=== PATIENT | female | born 1955 | race Caucasian/White ===

== ENCOUNTER → 2017-01-22 | Outpatient (CLI) | payer BC ==
--- NOTE | 2017-01-22 15:12 | MY ---
EXAMINATION: Bilateral digital mammography utilizing CAD. Left breast ultrasound. HISTORY: Diagnostic exam. Comparison is made to previous studies dated 08/13/2015, 01/10/2015 . FINDINGS Bilateral scattered fibroglandular densities. There are developing irregular and coarse calcifications within the region of scoliosis/fat necrosis within the lower outer left breast. The calcifications appear continually evolving from subsequent mammograms and is likely secondary to previous breast reduction. Targeted ultrasound evaluation of this region demonstrates a hypoechoic, fairly well circumscribed m ass measuring 2.8 x 1.2 cm. This previously measured 3.9 x 1.4 cm. There is also a complex cystic st ructure measuring 1 x 1.2 cm also at the 4 o'clock to 5 o'clock position of the left breast. Previou sly this measured the same, however, has become more complex. No internal color Doppler flow is note d. This likely represents an oil cyst. No suspicious calcifications, masses or architectural distortions. No pathologic appearing lymph n odes, no abnormal skin thickening or nipple inversion. CAD highlighted regions appear normal at th is time. IMPRESSION: BI-RADS category II - Benign finding. Continued screening according to ACR-ACS guidelin es suggested. THE FALSE-NEGATIVE RATE OF MAMMOGRAM IS APPROXIMATELY 10%. MANAGEMENT OF A PALPABLE ABNORMALITY MUST BE BASED UPON CLINICAL GROUNDS. SENSITIVITY FOR DETECTION OF ABNORMALITIES IN DENSE BREASTS IS LOW. NOTE: A letter will be sent to the patient regarding findings. [facility] -- DEEPIKA Lama [phone] - FAX [phone]
--- NOTE | 2017-01-22 16:22 | XA ---
Exam Date: 01/22/17 Patient's Age: 61 HEIGHT: 62.0 in WEIGHT: 190.0 lbs INDICATIONS: Currently Menopausal, Family Hx of Osteoporosis, Hypothyroid FRACTURES: TREATMENTS: Losartan, Metformin, Synthroid ASSESSMENT: The BMD measured at Femur Neck Mean is 0.960 g/cm2 with a T-score of -0.6. Bone density is up to 10% below young normal. This patient is considered normal according to World Health Organization (WHO) criteria. Fracture risk is low. The BMD measured at Femur Troch Mean is 0.953 g/cm2 with a T-score of 0.9 is normal. Fracture risk is low. RESULTS: Site Region Age Classification T-Score BMD AP Spine L1-L4 62.1 Normal 3.5 1.634 g/cm2 Dual Femur Neck Mean 62.1 Normal -0.6 0.960 g/cm2 Dual Femur Troch Mean 62.1 N/A 0.9 0.953 g/cm2 Dual Femur Total Mean 62.1 Normal 0.8 1.113 g/cm2 World Health Organization - Criteria for post-menopausal, women: Normal: T-Score at or above -1 SD Osteopenia: T-Score between -1 and -2.5 SD Osteoporosis: T-Score at or below -2.5 SD RECOMMENDATION: Pharmacologic treatment recommendations & Initiate pharmacologic treatment: - In those with hip or vertebral (clinical or asymptomatic) fractures - In those with T -scores <-2.5 at the femoral neck, total hip, or lumbar spine by DXA - In postmenopausal women and men age 50 and older with low bone mass (T-score between -1.0 and -2.5, osteopenia) at the femoral neck, total hip, or lumbar spine by DXA and a 10-year hip fracture probability >3 % or a 10-year major osteoporosis-related fracture probability >20% based on the [place]-adapted WHO absolute fracture risk model (Fracture Risk Algorithm (FRAX); www. NOF.org and www.shef.ac.uk/FRAX) FOLLOW UP: People with diagnosed cases of osteoporosis or at high risk for fracture should have regular bone mineral density tests. For patients eligible for Medicare, routine testing is allowed once every 2 years. The testing frequency can be increased to 1 year for patients who have rapidly progressing disease, those who are reviewing or discontinuing medial therapy to restore bone mass, or have additional risk factors. People with diagnosed cases of osteoporosis or osteopenia should be regularly tested for bone mineral density. For patient eligible for Medicare, routine testing is allowed once every 2 years. The testing frequency can be increased to 1 year for patients who have rapidly progressing disease, or for those who are receiving medial therapy to restore bone mass. [facility] -- DEEPIKA Lama [phone] - FAX: [phone] [place]
== END ==
LOC: MW.MAM 10:32
PROVIDERS: ATTEND Obstetrics & Gynecology
DX: N63 Unspecified lump in breast (principal); N95.1 Menopausal and female climacteric states
CPT/HCPCS: 76641; 77080; G0204

== ENCOUNTER 2017-11-10 06:25 | Day surgery (SDC) | payer BC ==
[~2017-11-10 06:25] MED LIST: Lactated Ringers 1,000 ML IV SCH; Sodium Chloride 0.9% 10 ML Syringe FLUSH PRN; Sodium Chloride 0.9% 2.5 ML Syringe FLUSH PRN
--- NOTE | 2017-11-10 07:09 | PCM.PREANE ---
Preanesthetic Assessment - Anesthesia/Transfusion/Family Hx Anesthesia History: Prior Anesthesia Without Reaction Other Type of Anesthesia Reaction Comment: Denies any problems in the past Family History of Anesthesia Reaction: No Transfusion History: No Prior Transfusion(s) Intubation History: Unknown - Review of Systems General: No Symptoms Pulmonary: No Symptoms Cardiovascular: No Symptoms Gastrointestinal: Other (h/o colon polyps, family h/o colon cancer) Neurological: No Symptoms Other: Reports: None - Physical Assessment NPO Status Date: 11/08/17 NPO Status Time: 21:00 O2 Sat by Pulse Oximetry: 97 Respiratory Rate: 14 Vital Signs: Last Vital Signs Temp 36.4 C 11/10/17 06:30 Pulse 66 11/10/17 06:30 Resp 14 11/10/17 06:30 BP 162/70 H 11/10/17 06:30 Pulse Ox 97 11/10/17 06:30 Height: 1.57 m Weight: 81.647 kg ASA Class: 3 Mental Status: Alert & Oriented x3 Airway Class: Mallampati = 2 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) Thyro-Mental Finger Breadths: 2 Mouth Opening Finger Breadths: 2 ROM/Head Extension: Full Lungs: Clear to Auscultation, Normal Respiratory Effort Cardiovascular: Regular Rate, Regular Rhythm - Allergies Allergies/Adverse Reactions: Allergies Allergy/AdvReac Type Severity Reaction Status Date / Time lisinopril Allergy Hives Verified 11/04/17 13:37 - Blood Blood Available: No - Anesthesia Plan Pre-Op Medication Ordered: None - Acknowledgements Anesthesia Type Planned: MAC Pt an Appropriate Candidate for the Planned Anesthesia: Yes Alternatives and Risks of Anesthesia Discussed w Pt/Guardian: Yes Pt/Guardian Understands and Agrees with Anesthesia Plan: Yes PreAnesthesia Questionnaire HEENT History: Reports: Other (See Below) Other HEENT History: wears glasses/contacts Cardiovascular History: Reports: High Cholesterol, Hypertension Gastrointestinal History: Reports: Colon Polyp [employer] History: Reports: Endocrine/Metabolic History: Reports: Diabetes, Type II, Hypothyroidism, Obesity /BMI 30+ - Past Surgical History GI Surgical History: Reports: Bariatric Procedure, Colonoscopy (x2) Female Surgical History: Reports: Breast Reduction, Section, Endometrial Ablation Musculoskeletal Surgical History: Reports: Other (See Below) Other Musculoskeletal Surgeries/Procedures:: amputation of 2nd toe left foot - SUBSTANCE USE Smoking Status *Q: Never Smoker Second Hand Smoke Exposure: No Days Per Week of Alcohol Use: 0 Number of Drinks Per Day: 0 Total Drinks Per Week: 0 Recreational Drug Use History: No - HOME MEDS Home Medications: Home Meds Levothyroxine 150 mcg PO ASDIRECTED 02/05/14 [History] Losartan [Cozaar] 100 mg PO ACBRK 02/05/14 [History] metFORMIN HCl [Metformin HCl ER] 1,000 mg PO BIDMEALS 02/05/14 [History] Flaxseed [Flaxseed Oil] 1,000 mg PO DAILY 01/19/15 [History] Magnesium 500 mg PO DAILY 01/19/15 [History] Multivitamin [Multivitamins] 1 tab PO DAILY 01/19/15 [History] Ascorbate Calcium [Vitamin C] 500 mg PO ASDIRECTED 11/04/17 [History] Calcium Carb & Citrate/Vit D3 [Citracal + D ER] 2 tab PO ASDIRECTED 11/04/17 [ History] Cyanocobalamin (Vitamin B12) [Vitamin B12] 100 mcg PO DAILY 11/04/17 [History] Ferrous Sulfate [Iron] 325 mg PO ASDIRECTED 11/04/17 [History] Levothyroxine Sodium [Synthroid] 75 mcg PO ASDIRECTED 11/04/17 [History] traZODone HCl [Trazodone HCl] 50 - 150 mg PO BEDTIME PRN 11/04/17 [History] - CURRENT (IN HOUSE) MEDS Current Meds: Current Medications Lactated Ringer's (Ringers, Lactated) 1,000 mls @ 125 mls/hr IV ASDIRECTED [facility] Last Admin: 11/10/17 06:47 Dose: 125 mls/hr Sodium Chloride (Saline Flush) 10 ml FLUSH ASDIRECTED PRN PRN Reason: Keep Vein Open Sodium Chloride (Saline Flush) 2.5 ml FLUSH ASDIRECTED PRN PRN Reason: Keep Vein Open Sodium Chloride (Saline Flush) 10 ml FLUSH ASDIRECTED PRN PRN Reason: Keep Vein Open Sodium Chloride (Saline Flush) 2.5 ml FLUSH ASDIRECTED PRN PRN Reason: Keep Vein Open
[2017-11-10] MEDS ORDERED: Lidocaine 2% 5 ML SDV ONE (07:25)
[2017-11-10] MEDS ORDERED: fentaNYL 100 MCG/2 ML SDV ONE (07:26)
[2017-11-10] MEDS ORDERED: Midazolam 1 MG/ML 2 ML SDV ONE (07:26)
[2017-11-10] MEDS ORDERED: Propofol 200 MG/20 ML SDV ONE (07:26)
--- NOTE | 2017-11-10 08:12 | PCM.OPNOTE ---
- General Post-Op/Procedure Note Date of Surgery/Procedure: 11/10/17 Findings: normal colonoscopy Pre Op Diagnosis: Screening colonoscopy Post-Op Diagnosis: Normal colon Primary Surgeon: Shahrzad Yang Complications: none Condition: Good
--- NOTE | 2017-11-10 08:37 | PCM48HPAN ---
Post Anesthesia Note - EVALUATION WITHIN 48HRS OF ANESTHETIC Vital Signs in Normal Range: Yes Patient Participated in Evaluation: Yes Respiratory Function Stable: Yes Airway Patent: Yes Cardiovascular Function Stable: Yes Hydration Status Stable: Yes Pain Control Satisfactory: Yes Nausea and Vomiting Control Satisfactory: Yes Mental Status Recovered: Yes Resp Rate: 12 - COMMENTS/OBSERVATIONS Free Text/Narrative:: no anesthesia problems
[2017-11-10 10:15] VITALS: BP 121/70
--- NOTE | 2017-11-10 15:22 | OR ---
SURGEON: KEYANA WORKMAN MD DATE OF PROCEDURE: 11/10/2017 PREOPERATIVE DIAGNOSIS: History of colon polyps. POSTOPERATIVE DIAGNOSIS: Diverticulosis. PROCEDURE PERFORMED: Screening colonoscopy. ANESTHESIA: Monitored anesthesia care. INSTRUMENT USED: Olympus colonoscope. EXTENT OF EXAM: To the cecum. PREPARATION: Good. LIMITATIONS: None. INDICATION FOR EXAMINATION: The patient is a 61-year-old female, who has a previous history of colon polyps. She is due for a repeat colonoscopy. We discussed the procedure, expected perioperative course, and risks including bleeding, infection, or damage to surrounding structures including perforation. The patient verbalized understanding and wishes to proceed. PROCEDURE IN DETAIL: The patient was brought into the endoscopy suite and placed in a left lateral decubitus position. A time-out was completed verifying the patient's name, age, date of , allergies, and procedure to be performed. Monitored anesthesia care was induced and continuous oxygen was provided via face mask throughout the procedure. After adequate sedation was achieved, a digital rectal exam was performed. This exam was within normal limits. A well lubricated colonoscope was inserted into the rectum and advanced under direct visualization to the level of cecum. The cecum was identified by both visual and anatomic landmarks. Photographs taken of the cecal cap; however, was unable to retroflex the scope within the cecum due to looping of the scope more proximally. The scope was then fully withdrawn while examining the color, texture, anatomy, and integrity of the mucosa from the cecum to the anal canal. The patient was noted to have diverticulosis. The scope was then brought into the rectum and retroflexed to allow visualization of the anal canal opening. This appeared normal, and a photograph was taken. The scope was then straightened out and removed from the patient. The cecum to anus time was 6 minutes. The patient tolerated the procedure well and was taken to PACU in stable condition. ENDOSCOPIC DIAGNOSIS: Diverticulosis. RECOMMENDATIONS: Follow up in the clinic in 2 weeks. DANIELLA HERNADEZ /[id number]
== END 2017-11-10 08:45 | disposition home or self-care (01) ==
LOC: MW.SDS 06:25
PROVIDERS: ATTEND Surgery
DX: Z12.11 Encounter for screening for malignant neoplasm of colon (principal); K57.30 Diverticulosis of large intestine without perforation or abscess without bleeding; I10 Essential (primary) hypertension; E78.00 Pure hypercholesterolemia, unspecified; E03.9 Hypothyroidism, unspecified; E66.9 Obesity, unspecified; E11.9 Type 2 diabetes mellitus without complications; Z86.010 Personal history of colon polyps; Z68.30 Body mass index [BMI] 30.0-30.9, adult; Z79.899 Other long term (current) drug therapy; Z88.8 Allergy status to other drugs, medicaments and biological substances; Z79.84 Long term (current) use of oral hypoglycemic drugs
CPT/HCPCS: 45378; J2250; J3010; J7120; J2704

== ENCOUNTER 2022-11-24 06:36 | Day surgery (SDC) | payer MEDICARE, OTHER ==
[~2022-11-24 06:36] MED LIST changes: +Sodium Chloride 0.9% 20 ML SDV IV PRN
[2022-11-24] MEDS ORDERED: Lidocaine 2% 5 ML SDV ONE (07:34)
[2022-11-24] MEDS ORDERED: Propofol 200 MG/20 ML SDV ONE (07:35)
[2022-11-24] MEDS ORDERED: fentaNYL 100 MCG/2 ML SDV ONE (07:35)
[2022-11-24 09:19] VITALS: BP 164/73; PULSE 68
== END 2022-11-24 09:00 | disposition home or self-care (01) ==
LOC: MW.SDS 06:36
PROVIDERS: ATTEND Surgery
DX: Z12.11 Encounter for screening for malignant neoplasm of colon (principal); K57.30 Diverticulosis of large intestine without perforation or abscess without bleeding; D12.7 Benign neoplasm of rectosigmoid junction; D12.5 Benign neoplasm of sigmoid colon; M79.673 Pain in unspecified foot; G89.29 Other chronic pain; I10 Essential (primary) hypertension; E03.9 Hypothyroidism, unspecified; E66.9 Obesity, unspecified; E11.9 Type 2 diabetes mellitus without complications; Z68.25 Body mass index [BMI] 25.0-25.9, adult; Z80.0 Family history of malignant neoplasm of digestive organs; Z86.010 Personal history of colon polyps; Z88.8 Allergy status to other drugs, medicaments and biological substances; Z79.899 Other long term (current) drug therapy; Z79.890 Hormone replacement therapy; Z79.84 Long term (current) use of oral hypoglycemic drugs; Z98.890 Other specified postprocedural states; Z96.641 Presence of right artificial hip joint
CPT/HCPCS: 88305; J2704; J3010; J3490; J7120

== ENCOUNTER 2023-12-09 08:48 | Day surgery (SDC) | payer MEDICARE, BC ==
[~2023-12-09 08:48] MED LIST changes: +Albuterol 0.083% 2.5 MG/3 ML Neb Soln NEB PRN; +HYDROmorphone 1 MG/ML Syringe IVPUSH PRN; -Lactated Ringers 1,000 ML IV SCH; +Metoclopramide 10 MG/2 ML SDV IVPUSH PRN; +Morphine 2 MG/ML SYRINGE IVPUSH PRN; +Naloxone 0.4 MG/ML SDV IVPUSH PRN; +Ondansetron 4 MG/2 ML SDV IVPUSH PRN; +ceFAZolin 2 GM in Sodium Chloride 0.9% 50 ML IV ONE; +droPERidol 5 MG/2 ML SDV IVPUSH PRN; +fentaNYL 50 MCG/ML SDV IVPUSH PRN
[2023-12-09] MEDS: Lactated Ringers 1,000 ML IV SCH (09:15)
[2023-12-09] MEDS ORDERED: Propofol 200 MG/20 ML SDV ONE (09:37)
[2023-12-09] MEDS ORDERED: fentaNYL 100 MCG/2 ML SDV ONE (09:37)
[2023-12-09] MEDS ORDERED: propofoL 50 ML ONE (09:37)
[2023-12-09] MEDS ORDERED: Bupivacaine 0.5% 30 ML SDV ONE (09:39)
[2023-12-09] MEDS ORDERED: Lidocaine 1% 20 ML MDV ONE (09:39)
[2023-12-09] MEDS ORDERED: ceFAZolin 2 GM Vial ONE (10:29)
[2023-12-09 12:34] VITALS: BP 139/66; PULSE 56
== END 2023-12-09 11:30 | disposition home or self-care (01) ==
LOC: MW.SDS 08:48
PROVIDERS: ATTEND Surgery
DX: N61.0 Mastitis without abscess (principal); I10 Essential (primary) hypertension; E03.9 Hypothyroidism, unspecified; E11.9 Type 2 diabetes mellitus without complications; Z98.84 Bariatric surgery status; Z79.82 Long term (current) use of aspirin; Z79.890 Hormone replacement therapy; Z79.85 Long-term (current) use of injectable non-insulin antidiabetic drugs; Z79.899 Other long term (current) drug therapy
CPT/HCPCS: 19120; J0131; J0665; J0690; J2704; J3010; J7120; J3490